=== PATIENT | male | born 1985 | race Caucasian/White ===

== ENCOUNTER 2023-09-09 16:17 | Observation (INO) ==
[2023-09-09 16:55] LABS: Hemoglobin 10.4 g/dl (14.0-18.0); Mean Corpuscular Hemoglobin 31.9 pg (25.0-34.0); Mean Corpuscular Hgb Conc 32.5 g/dL (32.0-36.0); Mean Corpuscular Volume 98.2 fL (80.0-100.0); Platelet Count 152 K/uL (130-400); RDW Coefficient of Variation 15.6 % (11.5-14.5); RDW Standard Deviation 56.4 fL (36.4-46.3); Red Blood Count 3.26 M/uL (4.70-6.10)
[2023-09-09] MEDS ORDERED: SODIUM CHLORIDE 0.9% 1,000 ML IV ONE (16:56)
[2023-09-09] MEDS ORDERED: ACETAMINOPHEN 500 MG TAB PO STA (17:04)
--- NOTE | 2023-09-09 17:04 | Emergency Department Note ---
Impression & Plan Fever ADMIT ED Provider Note HPI: History obtained from patient The patient is a 38-year-old gentleman with history of metastatic colon cancer, currently on chemotherapy, presents emergency department the chief complaint of fever. Patient states over the past 3 days he has had a slight cough, today he developed a fever and when he checked his temperature it was elevated to 102 Fahrenheit. Patient states he contacted his hematology/oncology providers in the [place] area where he lives and he was advised to come to the emergency department to be assessed. On arrival here to the ED the patient is mildly tachycardic at 107, he is febrile on arrival at 38.4, blood pressure stable at 123/102. ROS: - Per HPI Differential Diagnosis: Viral upper respiratory infection, influenza A infection, COVID-19 infection, pneumonia, urinary tract infection, sepsis, amongst other potential pathologies. *Outpatient medications and allergy history reviewed. PE: General: Alert HEENT: Normocephalic, trachea midline Eyes: Extraocular eye movement is intact, no scleral erythema Pulmonary: Clear to auscultation bilaterally, no wheezing Cardio: Tachycardic rate and regular rhythm GI: Abdomen is soft to palpation : No suprapubic tenderness MSK: No evidence of trauma or malformation of the extremities, no edema Skin: No evidence of rash Neuro: Alert, no focal deficits Psychiatric: Cooperative INDEPENDENT INTERPRETATIONS: patient monitor: (As interpreted by myself): - An order was placed for continuous cardiac monitoring - Patient was noted to be in sinus rhythm with a rate of 92 Chest x-ray: (As interpreted by myself): No acute disease Interventions provided in ED: -IV fluid bolus, IV vancomycin, IV Zosyn Medical Decision Making: Shortly after the patient arrived IV was established and lab work obtained, patient was placed on patient monitor, patient was given IV fluid bolus. Patient was not given Tylenol for fever secondary to history of metastatic colon cancer to the liver. Lab work shows evidence of leukocytosis at 12.4, hemoglobin is stable at 10.4, platelet count is normal. Patient is not neutropenic. CMP shows a mild hyponatremia 135, no evidence of acute kidney injury, mild transaminitis with AST of 48, ALT of 66, alk phos at 860, I suspect this is likely related to metastatic disease. Lipase is slightly elevated at 84, patient does not have any abdominal pain. Procalcitonin is elevated at 1.6. Urinalysis does not show any evidence of infection. Viral panel testing is positive for RSV. Patient's symptoms could possibly be secondary to viral infection with RSV, he was given IV fluid bolus here in the ED but was not given a full 30 cc/kg as lactic acid is noted to be within normal limits and the patient is hemodynamically stable, tachycardia downtrended to within normal limits with IV fluids. Patient's blood pressure has been stable, he does not appear to be actively septic. On reassessment the patient appears more comfortable, given his immunocompromise status as he is currently on chemotherapy, I do think it would be reasonable to initiate broad-spectrum antibiotics, admit the patient to the hospitalist service, and follow-up on blood cultures. I did discuss the patient's presentation with the on-call hospitalist for [facility], Dr. Albert, and she is in agreement to admit the patient for further management. Consultants/Discussions held with other healthcare providers: -Dr. Albert, hospitalist Disposition discussion held by myself with: -Patient and significant other at the bedside Diagnosis: 1. Fever, acute 2. History of metastatic colon cancer, currently on chemotherapy 3. Leukocytosis, acute 4. Elevated procalcitonin 5. RSV positive PCR test Disposition: Admission Davon Bonner DO Emergency Medicine Past Med/Surg History Medical History Hypothyroidism Stage IV carcinoma of colon Surgical History S/P ACL repair right Family History Father Cancer Mother Cancer Grandmother (Maternal) Colorectal cancer Social History Smoking Status: Never smoker Hx Alcohol Use: No Allergies Allergies Allergy/AdvReac Type Severity Reaction Status Date / Time No Known Allergies Allergy Verified 09/09/23 18:05 Home Meds Home Medications Medication Instructions Recorded Confirmed 5-Fu Chemo Drug 1 dose IV .Q2WKS 09/09/23 09/09/23 Chemo Medications 1 dose IV DIRECTED 09/09/23 09/09/23 Folinic Acid 1 dose .Q2WK 09/09/23 09/09/23 bevacizumab 25 mg/mL intravenous 0 mg DIRECTED 09/09/23 09/09/23 solution (Avastin) diphenoxylate-atropine 2.5 1 tab PO DIRECTED PRN Diarrhea 09/09/23 09/09/23 mg-0.025 mg tablet (Lomotil) food supplemt, lactose-reduced 1 ea PO DIRECTED PRN NEEDED 09/09/23 09/09/23 heparin lock flush (porcine) 10 10 unit IV DIRECTED 09/09/23 09/09/23 unit/mL intravenous solution levothyroxine 112 mcg tablet 112 mcg PO DAILY 09/09/23 09/09/23 omeprazole 20 mg tablet,delayed 20 mg PO DAILY 09/09/23 09/09/23 release prochlorperazine maleate 10 mg 10 mg PO Q8H PRN NAUSEA/VOMITING 09/09/23 09/09/23 tablet sodium chloride 0.9 % (flush) 10 ml IV DIRECTED 09/09/23 09/09/23 valacyclovir 500 mg tablet 1,000 mg PO DIRECTED PRN Cold 09/09/23 09/09/23 Sores Results & Data (ED) Vital Signs Vital Signs - 24 hr 09/09/23 16:22 09/09/23 16:59 09/09/23 17:03 Temperature 37.2 C 38.4 C H Temperature Source Oral Oral Pulse Rate 111 H Pulse Rate [Finger] 107 H Respiratory Rate 18 18 Respiratory Effort / Characteristics Non-Labored Spontaneous Respiratory Depth Normal Respiratory Pattern Regular Blood Pressure 132/86 Blood Pressure [Right Arm] 123/102 H Blood Pressure Mean 101 Blood Pressure Mean [Right Arm] 109 Blood Pressure Position [Right Arm] Lying Pulse Oximetry 97 96 Oxygen Delivery Method Room Air Room Air Sepsis Recent Fever Within 48 Hours No Sepsis New/Unexplained Change in Mental Status No Sepsis Action Taken by Nursing No Action Required 09/09/23 17:11 Temperature Temperature Source Pulse Rate 104 H Pulse Rate [Finger] Respiratory Rate Respiratory Effort / Characteristics Respiratory Depth Respiratory Pattern Blood Pressure Blood Pressure [Right Arm] Blood Pressure Mean Blood Pressure Mean [Right Arm] Blood Pressure Position [Right Arm] Pulse Oximetry Oxygen Delivery Method Sepsis Recent Fever Within 48 Hours Sepsis New/Unexplained Change in Mental Status Sepsis Action Taken by Nursing Laboratory Data 09/09/23 16:37 09/09/23 16:37 Lab Results 09/09/23 09/09/23 09/09/23 Range/Units 16:37 17:00 17:28 WBC 12.40 H (4.8-10.8) K/ul RBC 3.26 L (4.70-6.10) M/uL Hgb 10.4 L (14.0-18.0) g/dl Hct 32.0 L (42.0-52.0) % MCV 98.2 (80.0-100.0) fL MCH 31.9 (25.0-34.0) pg MCHC 32.5 (32.0-36.0) g/dL RDW Std Deviation 56.4 H (36.4-46.3) fL RDW Coeff of Faustino 15.6 H (11.5-14.5) % Plt Count 152 (130-400) K/uL MPV 10.0 (9.4-12.4) fL Immature Gran % (Auto) 0.6 % Neut % (Auto) 79.2 % Lymph % (Auto) 5.7 % [place] % (Auto) 11.5 % Eos % (Auto) 2.2 % Baso % (Auto) 0.8 % Neut # (Auto) 9.83 H (1.40-6.50) K/uL Lymph # (Auto) 0.71 L (1.20-3.40) K/uL [place] # (Auto) 1.42 H (0.11-0.59) K/uL Eos # (Auto) 0.27 (0.00-0.50) K/uL Baso # (Auto) 0.10 (0.00-0.20) K/uL Immature Gran # (Auto) 0.07 (0.01-0.20) K/uL Dohle Bodies 1+ Polychromasia 1+ Stomatocytes 1+ Sodium 135 L (136-145) mmol/L Potassium 3.7 (3.5-5.1) mmol/L Chloride 101 (98-107) mmol/L Carbon Dioxide 27 (21-32) mmol/L Anion Gap 7 (3-11) BUN 10 (6-23) mg/dl Creatinine 0.87 (0.6-1.4) mg/dl Est Cr Clr Drug Dosing 131.2 ml/min Est GFR ( Amer) 125.1 ml/min Est GFR (Non-Af Amer) 108.0 ml/min BUN/Creatinine Ratio 11.5 (10-20) Glucose 104 H (70-99(Fasting)) mg/dl Lactate 1.3 (0.4-2.0) mmol/L Calcium 8.9 (8.6-10.3) mg/dl Total Bilirubin 0.7 (0.2-1.0) mg/dl AST 48 H (13-39) U/L ALT 66 H (7-52) U/L Alkaline Phosphatase 860 H (34-104) U/L Total Protein 7.5 (6.0-8.3) gm/dl Albumin 4.0 (3.4-5.0) gm/dl Globulin 3.5 (2.5-4.0) gm/dl Albumin/Globulin Ratio 1.1 (0.9-2) Lipase 84 H (11-82) U/L Procalcitonin 1.66 H (0-0.5) ng/ml Urine Color Urine Appearance (Clear) Urine pH (4.5-7.5) Ur Specific Frost (1.000-1.030) Urine Protein (Negative) Urine Glucose (UA) (Negative) Urine Ketones (Negative) Urine Blood (Negative) Urine Nitrite (Negative) Urine Bilirubin (Negative) Urine Urobilinogen (Negative) Ur Leukocyte Esterase (Negative) Adenovirus (PCR) Not Detected (NotDetected) B. pertussis DNA (PCR) Not Detected (NotDetected) B.parapertussis DNA PCR Not Detected (NotDetected) C. pneumoniae DNA (PCR) Not Detected (NotDetected) Coronavirus OC43 (PCR) Not Detected (NotDetected) Coronavirus HKU1 (PCR) Not Detected (NotDetected) Coronavirus 229E (PCR) Not Detected (NotDetected) SARS-CoV-2 (PCR) Not Detected (NotDetected) Coronavirus NL63 (PCR) Not Detected (NotDetected) Human Metapneumovir PCR Not Detected (NotDetected) Influenza Type A (PCR) Not Detected (NotDetected) Influenza Type B (PCR) Not Detected (NotDetected) M. pneumoniae (PCR) Not Detected (NotDetected) Parainfluenza 1 (PCR) Not Detected (NotDetected) Parainfluenza 2 (PCR) Not Detected (NotDetected) Parainfluenza 3 (PCR) Not Detected (NotDetected) Parainfluenza 4 (PCR) Not Detected (NotDetected) RSV (PCR) DETECTED A* (NotDetected) Entero/Rhino (PCR) Not Detected (NotDetected) 09/09/23 Range/Units 18:24 WBC (4.8-10.8) K/ul RBC (4.70-6.10) M/uL Hgb (14.0-18.0) g/dl Hct (42.0-52.0) % MCV (80.0-100.0) fL MCH (25.0-34.0) pg MCHC (32.0-36.0) g/dL RDW Std Deviation (36.4-46.3) fL RDW Coeff of Faustino (11.5-14.5) % Plt Count (130-400) K/uL MPV (9.4-12.4) fL Immature Gran % (Auto) % Neut % (Auto) % Lymph % (Auto) % [place] % (Auto) % Eos % (Auto) % Baso % (Auto) % Neut # (Auto) (1.40-6.50) K/uL Lymph # (Auto) (1.20-3.40) K/uL [place] # (Auto) (0.11-0.59) K/uL Eos # (Auto) (0.00-0.50) K/uL Baso # (Auto) (0.00-0.20) K/uL Immature Gran # (Auto) (0.01-0.20) K/uL Dohle Bodies Polychromasia Stomatocytes Sodium (136-145) mmol/L Potassium (3.5-5.1) mmol/L Chloride (98-107) mmol/L Carbon Dioxide (21-32) mmol/L Anion Gap (3-11) BUN (6-23) mg/dl Creatinine (0.6-1.4) mg/dl Est Cr Clr Drug Dosing ml/min Est GFR ( Amer) ml/min Est GFR (Non-Af Amer) ml/min BUN/Creatinine Ratio (10-20) Glucose (70-99(Fasting)) mg/dl Lactate (0.4-2.0) mmol/L Calcium (8.6-10.3) mg/dl Total Bilirubin (0.2-1.0) mg/dl AST (13-39) U/L ALT (7-52) U/L Alkaline Phosphatase (34-104) U/L Total Protein (6.0-8.3) gm/dl Albumin (3.4-5.0) gm/dl Globulin (2.5-4.0) gm/dl Albumin/Globulin Ratio (0.9-2) Lipase (11-82) U/L Procalcitonin (0-0.5) ng/ml Urine Color Yellow Urine Appearance Clear (Clear) Urine pH 6.0 (4.5-7.5) Ur Specific Frost 1.005 (1.000-1.030) Urine Protein Negative (Negative) Urine Glucose (UA) Negative (Negative) Urine Ketones Negative (Negative) Urine Blood Negative (Negative) Urine Nitrite Negative (Negative) Urine Bilirubin Negative (Negative) Urine Urobilinogen Negative (Negative) Ur Leukocyte Esterase Negative (Negative) Adenovirus (PCR) (NotDetected) B. pertussis DNA (PCR) (NotDetected) B.parapertussis DNA PCR (NotDetected) C. pneumoniae DNA (PCR) (NotDetected) Coronavirus OC43 (PCR) (NotDetected) Coronavirus HKU1 (PCR) (NotDetected) Coronavirus 229E (PCR) (NotDetected) SARS-CoV-2 (PCR) (NotDetected) Coronavirus NL63 (PCR) (NotDetected) Human Metapneumovir PCR (NotDetected) Influenza Type A (PCR) (NotDetected) Influenza Type B (PCR) (NotDetected) M. pneumoniae (PCR) (NotDetected) Parainfluenza 1 (PCR) (NotDetected) Parainfluenza 2 (PCR) (NotDetected) Parainfluenza 3 (PCR) (NotDetected) Parainfluenza 4 (PCR) (NotDetected) RSV (PCR) (NotDetected) Entero/Rhino (PCR) (NotDetected) Administered Medications Discontinued Medications Acetaminophen (Acetaminophen 500 Mg Tab) 1,000 mg PO NOW STA Stop: 09/09/23 17:05 Last Admin: 09/09/23 17:29 Dose: Not Given Documented By: TREY Diphenhydramine HCl (Diphenhydramine 50 Mg/Ml Vial) 50 mg IV NOW STA Stop: 09/09/23 21:33 Last Admin: 09/09/23 21:47 Dose: 50 mg Documented By: DIANELYS Sodium Chloride (Nss) 1,000 mls @ 999 mls/hr IV .Q1H1M ONE Stop: 09/09/23 17:56 Last Infusion: 09/09/23 18:02 Dose: Infused Documented By: Infusion: 09/09/23 18:01 Dose: 0 mls/hr Documented By: Admin: 09/09/23 17:29 Dose: 999 mls/hr Documented By: TREY Vancomycin HCl 2,000 mg/ (Sodium Chloride) 540 mls @ 200 mls/hr IV NOW ONE Stop: 09/09/23 20:44 Last Admin: 09/09/23 19:02 Dose: 200 mls/hr Documented By: DIANELYS Piperacillin Sod/Tazobactam Sod (Zosyn) 4.5 gm in 100 mls @ 200 mls/hr IV NOW ONE Stop: 09/09/23 18:32 Last Infusion: 09/09/23 19:24 Dose: Infused Documented By: Admin: 09/09/23 18:38 Dose: 200 mls/hr Documented By: JOE Famotidine 20 mg/ Syringe 5 mls @ 2.5 mls/min IV NOW STA Stop: 09/09/23 21:33 Last Admin: 09/09/23 21:47 Dose: 2.5 mls/min Documented By: DIANELYS Imaging Data Radiologist's Impression: Chest X-Ray 09/09/23 16:55 XR chest 1V portable CLINICAL HISTORY: Fever. COMPARISON STUDY: No previous studies for comparison. FINDINGS: A right internal jugular [id number] is in place. Lung volumes are normal. Lungs are clear. There is no pneumothorax or pleural effusion. Cardiac size is normal. Mediastinal contours are normal. There is no evidence for pulmonary edema. IMPRESSION: No acute cardiopulmonary findings. ACT 112: Negative or not required by law. Electronically signed by: Abhinav Moe M.D. 09/09/2023 5:32 PM Discharge Plan Visit Data Chief Complaint: Fever Stated Complaint: FEVER - ON CHEMO ED Provider: Davon Bonner Discharge Problem: Fever Patient Disposition: Admitted As Inpatient Discharge Instructions Interventions: ED Discharge Assessment Last Done: 09/09/23 20:57
[2023-09-09 17:13] LABS: Albumin Globulin Ratio 1.1 (0.9-2); BUN Creatinine Ratio 11.5 (10-20); Bilirubin,Total 0.7 mg/dl (0.2-1.0); Calcium 8.9 mg/dl (8.6-10.3); Creatinine Clr Calc Pharmacy 131.2 ml/min; Est GFR (African American) 125.1 ml/min; Globulin 3.5 gm/dl (2.5-4.0); Potassium 3.7 mmol/L (3.5-5.1); Total Protein 7.5 gm/dl (6.0-8.3)
[2023-09-09 17:28] LABS: Basophils % (auto) 0.8 %; Dohle Bodies 1+; Eosinophils # (auto) 0.27 K/uL (0.00-0.50); Eosinophils % (auto) 2.2 %; Immature Granulocytes # (auto) 0.07 K/uL (0.01-0.20); Immature Granulocytes % (auto) 0.6 %; Lymphocytes # (auto) 0.71 K/uL (1.20-3.40); Lymphocytes % (auto) 5.7 %; Monocytes # (auto) 1.42 K/uL (0.11-0.59); Monocytes % (auto) 11.5 %; Neutrophils # (auto) 9.83 K/uL (1.40-6.50); Neutrophils % (auto) 79.2 %; Polychromasia 1+; Stomatocytes 1+
--- NOTE | 2023-09-09 17:33 | XRay Report ---
XR chest 1V portable CLINICAL HISTORY: Fever. COMPARISON STUDY: No previous studies for comparison. FINDINGS: A right internal jugular [id number] is in place. Lung volumes are normal. Lungs are wilbur r. There is no pneumothorax or pleural effusion. Cardiac size is normal. Mediastinal contours are nor mal. There is no evidence for pulmonary edema. IMPRESSION: No acute cardiopulmonary findings. ACT 112: Negative or not required by law. Electronically signed by: Abhinav Moe M.D. 09/09/2023 5:32 PM
[2023-09-09 17:58] LABS: Adenovirus PCR Not Detected (NotDetected); Bordetella parapertussis PCR Not Detected (NotDetected); Bordetella pertussis PCR Not Detected (NotDetected); Chlamydia pneumoniae PCR Not Detected (NotDetected); Coronavirus 229E PCR Not Detected (NotDetected); Coronavirus CoV-2 (COVID19)PCR Not Detected (NotDetected); Coronavirus HKU1 PCR Not Detected (NotDetected); Coronavirus NL63 PCR Not Detected (NotDetected); Coronavirus OC43PCR Not Detected (NotDetected); Human Metapneumovirus PCR Not Detected (NotDetected); Influenza A PCR Not Detected (NotDetected); Influenza B PCR Not Detected (NotDetected); Mycoplasma pneumoniae PCR Not Detected (NotDetected); Parainfluenza Virus 1 PCR Not Detected (NotDetected); Parainfluenza Virus 2 PCR Not Detected (NotDetected); Parainfluenza Virus 3 PCR Not Detected (NotDetected); Parainfluenza Virus 4 PCR Not Detected (NotDetected); Rhinovirus/Enterovirus PCR Not Detected (NotDetected)
[2023-09-09 18:02] LABS: Respiratory Syncytial VirusPCR DETECTED (NotDetected)
[2023-09-09] MEDS ORDERED: VANCOMYCIN HCL 2,000 MG in SODIUM CHLORIDE 0.9% 500 ML IV ONE (18:03)
[2023-09-09] MEDS ORDERED: PIPERACILLIN/TAZOBACTAM 4.5 GM/100 ML BAG IV ONE (18:03)
[2023-09-09] MEDS ORDERED: VANCOMYCIN CONSULT ACTIVE PRN (18:03)
--- NOTE | 2023-09-09 18:18 | History & Physical Report ---
Date of Service September 09, 2023 Assessment & Plan (1) Sepsis: Plan: This is a 38 y/o male with stage IV colon cancer, on chemo therapy, presents to the ED today with new onset of fever today. He is currently undergoing chemotherapy with last treatment 09/01-09/03. He has had URI symptoms for the last 2-3 days but today developed a fever so presented to the ED for evaluation. In the ED, he was noted to be tachycardic, febrile, with leukocytosis and testing positive for RSV. Procalcitonin was elevated but lactate was normal. He does meet for sepsis criteria. Blood and urine cultures pending. - Admit to med telemetry - droplet precautions due to RSV - Continue broad spectrum IV antibiotics (Zosyn, Vanco) while cultures pending - Check MRSA swab - Due to new RUQ pains with slight worsening of baseline LFT elevation, check RUQ ultrasound - Labs in the AM - CBC, BMP, LFTs, Mg, Phos, Lipase - Diet as tolerated (2) RSV infection: (3) Immunocompromised state due to drug therapy: (4) Stage IV carcinoma of colon: (5) Hypothyroidism: Plan: Continue levothyroxine Plan Pt seen and reviewed with collaborating physician, Dr. Albert. Plan of care discussed and as outlined above Code Status: Full code DVT Prophylaxis: Addi Dougherty PA-C History of Present Illness Chief Complaint: Fever x 1 day Primary Care Provider: BRIGHT PERDOMO This is a 38 y/o male with stage IV colon cancer, on chemo therapy, presents to the ED today with new onset of fever today. He notes cold symptoms with associated cough for the last two days. This morning woke up feeling crummy so checked temp, which was normal. This afternoon around 2 pm, check temp again and it was 100.3 --> 100.7 --> 101.7F so came to the ED for evaluation per protocol from oncology. Hist last chemo infusion was 09/01- 09/03, which was cycle 9 of current regimen. He is scheduled for a repeat CT scan on 09/13 to assess response to current treatment regimen. Has noted some diarrhea to loose stools after last round of chemo but this seems to be improving. He also notes new intermittent sharp RUQ pains the last few days but these only last less than 5 minutes. He has not been able to identify any specific triggers. No N/V. Ongoing generalized abdominal pain related to cancer, known ascites on prior imaging. The colon cancer is stage IV with known mets to liver with >50 lesions and to the spine. He reports that have been told that it is "standard colon cancer with neuroendocrine features." He reports a strong family history of both cancer and colon cancer. Allergies Allergy/AdvReac Type Severity Reaction Status Date / Time No Known Allergies Allergy Verified 09/09/23 18:05 Home Medications Medication Instructions Recorded Confirmed Type 5-Fu Chemo Drug 1 dose IV .Q2WKS 09/09/23 09/09/23 History Chemo Medications 1 dose IV DIRECTED 09/09/23 09/09/23 History Folinic Acid 1 dose .Q2WK 09/09/23 09/09/23 History bevacizumab 25 mg/mL intravenous 0 mg DIRECTED 09/09/23 09/09/23 History solution (Avastin) diphenoxylate-atropine 2.5 1 tab PO DIRECTED PRN Diarrhea 09/09/23 09/09/23 History mg-0.025 mg tablet (Lomotil) food supplemt, lactose-reduced 1 ea PO DIRECTED PRN NEEDED 09/09/23 09/09/23 History heparin lock flush (porcine) 10 10 unit IV DIRECTED 09/09/23 09/09/23 History unit/mL intravenous solution levothyroxine 112 mcg tablet 112 mcg PO DAILY 09/09/23 09/09/23 History omeprazole 20 mg tablet,delayed 20 mg PO DAILY 09/09/23 09/09/23 History release prochlorperazine maleate 10 mg 10 mg PO Q8H PRN NAUSEA/VOMITING 09/09/23 09/09/23 History tablet sodium chloride 0.9 % (flush) 10 ml IV DIRECTED 09/09/23 09/09/23 History valacyclovir 500 mg tablet 1,000 mg PO DIRECTED PRN Cold 09/09/23 09/09/23 History Sores Past Med/Surg History Medical History Hypothyroidism Stage IV carcinoma of colon Surgical History S/P ACL repair right Family History Father Cancer Mother Cancer Grandmother (Maternal) Colorectal cancer Social History Smoking Status: Never smoker Hx Alcohol Use: No Review of Systems Review of Systems: All systems reviewed & are unremarkable except as noted in HPI & below Constitutional: + fever and + chills Ear, Nose, Mouth, Throat: + nasal congestion and + nasal discharge Respiratory: + cough; no dyspnea Cardiovascular: no chest pain and no palpitations Gastrointestinal: as per Subjective / HPI Genitourinary: no dysuria or no hematuria Integumentary: no yellowing of the skin Neurologic: no seizure-like activity and no confusion Physical Exam Physical Exam: Please see physician addendum for details of the physical exam. Results & Data Results & Data Vital Signs (Past 12 Hours) Vital Signs Temp Pulse Pulse Resp BP BP Pulse Ox 09/09/23 17:11 104 H 09/09/23 17:03 38.4 C H 09/09/23 16:59 107 H 18 123/102 H 96 09/09/23 16:22 37.2 C 111 H 18 132/86 97 O2 Del Method 09/09/23 17:11 09/09/23 17:03 09/09/23 16:59 Room Air 09/09/23 16:22 Room Air Laboratory Results Laboratory Results - last 24 hr 09/09/23 09/09/23 09/09/23 16:37 17:00 17:28 WBC 12.40 H RBC 3.26 L Hgb 10.4 L Hct 32.0 L MCV 98.2 MCH 31.9 MCHC 32.5 RDW Std Deviation 56.4 H RDW Coeff of Faustino 15.6 H Plt Count 152 MPV 10.0 Immature Gran % (Auto) 0.6 Neut % (Auto) 79.2 Lymph % (Auto) 5.7 Dale % (Auto) 11.5 Eos % (Auto) 2.2 Baso % (Auto) 0.8 Neut # (Auto) 9.83 H Lymph # (Auto) 0.71 L Dale # (Auto) 1.42 H Eos # (Auto) 0.27 Baso # (Auto) 0.10 Immature Gran # (Auto) 0.07 Dohle Bodies 1+ Polychromasia 1+ Stomatocytes 1+ Sodium 135 L Potassium 3.7 Chloride 101 Carbon Dioxide 27 Anion Gap 7 BUN 10 Creatinine 0.87 Est Cr Clr Drug Dosing 131.2 Est GFR ( Amer) 125.1 Est GFR (Non-Af Amer) 108.0 BUN/Creatinine Ratio 11.5 Glucose 104 H Lactate 1.3 Calcium 8.9 Total Bilirubin 0.7 AST 48 H ALT 66 H Alkaline Phosphatase 860 H Total Protein 7.5 Albumin 4.0 Globulin 3.5 Albumin/Globulin Ratio 1.1 Lipase 84 H Procalcitonin 1.66 H Adenovirus (PCR) Not Detected B. pertussis DNA (PCR) Not Detected B.parapertussis DNA PCR Not Detected C. pneumoniae DNA (PCR) Not Detected Coronavirus OC43 (PCR) Not Detected Coronavirus HKU1 (PCR) Not Detected Coronavirus 229E (PCR) Not Detected SARS-CoV-2 (PCR) Not Detected Coronavirus NL63 (PCR) Not Detected Human Metapneumovir PCR Not Detected Influenza Type A (PCR) Not Detected Influenza Type B (PCR) Not Detected M. pneumoniae (PCR) Not Detected Parainfluenza 1 (PCR) Not Detected Parainfluenza 2 (PCR) Not Detected Parainfluenza 3 (PCR) Not Detected Parainfluenza 4 (PCR) Not Detected RSV (PCR) DETECTED A* Entero/Rhino (PCR) Not Detected Diagnostic Findings Chest X-Ray 09/09/23 16:55 XR chest 1V portable CLINICAL HISTORY: Fever. COMPARISON STUDY: No previous studies for comparison. FINDINGS: A right internal jugular [id number]-[id number] is in place. Lung volumes are normal. Lungs are clear. There is no pneumothorax or pleural effusion. Cardiac size is normal. Mediastinal contours are normal. There is no evidence for pulmonary edema. IMPRESSION: No acute cardiopulmonary findings. ACT 112: Negative or not required by law. Electronically signed by: Abhinav Moe M.D. 09/09/2023 5:32 PM Medications Administered Discontinued Medications Acetaminophen (Acetaminophen 500 Mg Tab) 1,000 mg PO NOW STA Stop: 09/09/23 17:05 Last Admin: 09/09/23 17:29 Dose: Not Given Documented By: TREY Sodium Chloride (Nss) 1,000 mls @ 999 mls/hr IV .Q1H1M ONE Stop: 09/09/23 17:56 Last Infusion: 09/09/23 18:02 Dose: Infused Documented By: Infusion: 09/09/23 18:01 Dose: 0 mls/hr Documented By: Admin: 09/09/23 17:29 Dose: 999 mls/hr Documented By: TREY Supervising Physician Co-Signing Physician Notes I have seen and discussed the case with the collaborating JESSICA. I agree with the above H&P. I have reviewed and confirmed the patients medical history, the findings on physical examination, and the patients diagnosis and treatment plan with Ladonna LOPEZ and agree with the information documented. In short, Mr. Barillas is a 38 year old gentleman with hypothyroidism and recently diagnosed (02/2023) stage V colon cancer with mets to liver and spine who is being admitted for evaluation and management of sepsis with RSV in setting of immunocompromised state (chemotherapy infusion last treatment 09/03). Patient states he noted fevers at home and denies really experiencing any other symptoms. He experienced multiple fevers over 100.4, with one at 102 prompting call to his physician who encouraged a visit to the ED. His oncologist is out of [facility]. Patient reports intermittent RUQ pain and stabbing, occasionally triggered by coughing, but not able to correlate symptoms to eating. Swab revealed RSV. UA negative. Procal 1.66. Transaminitis--slightly elevated compared to recent baseline on OSH portal. Physical exam was notable for a pleasant and generally well appearing gentleman. HEENT MMM, PERRLA CV Tachycardic, no MRG RESP CTABL, no resp distress, on room air, ABD soft NTND MSK strength 5/5 Neuro no focal neuro deficits. Plan #Sepsis #RSV infection #Immunocompromised, ongoing chemotherapy -No neutropenia noted; UA negative, Blood cultures pending -Continue broad coverage while blood cultures pend -S/p 1 L IVF in ED -MRSA swab #Transaminitis -Chronic, however new, intermittent pain iso know metastatic disease, no active pain on exam -Trend CMP, plan for liver US in am -If uptrending can consider repeat imaging with plan to obtain records/OSH imaging to coorelate Rest of plan as above (1) Sepsis Sepsis acute organ dysfunction status: without acute organ dysfunction Sepsis type: sepsis due to unspecified organism Qualified Code(s): A41.9 - Sepsis, unspecified organism (5) Hypothyroidism Hypothyroidism type: unspecified Qualified Code(s): E03.9 - Hypothyroidism, unspecified
[2023-09-09 18:34] LABS: Appearance Urine Clear (Clear); Bilirubin Urine Negative (Negative); Blood Urine Negative (Negative); Color Urine Yellow; Glucose Urine UA Negative (Negative); Ketones Urine Negative (Negative); Leukocyte Esterase Urine Negative (Negative); Nitrite Urine Negative (Negative); Protein Urine Negative (Negative); Specific Gravity Urine 1.005 (1.000-1.030); Urobilinogen Urine Negative (Negative)
[2023-09-09] MEDS ORDERED: ACETAMINOPHEN 325 MG TAB PO PRN (20:57)
[2023-09-09] MEDS ORDERED: ONDANSETRON INJ 2 MG/ML 2 ML VIAL IV PRN (20:57)
[2023-09-09] MEDS ORDERED: diphenhydrAMINE 50 MG/ML VIAL IV STA (21:32)
[2023-09-09] MEDS ORDERED: FAMOTIDINE 20 MG in SYRINGE 3 ML IV STA (21:32)
--- NOTE | 2023-09-09 21:38 | Pharmacy Report ---
Pharmacy PK ABX Note - Date of Service September 09, 2023 - Assessment and Plan Assessment 38 year old M receiving IV Vancomycin and Zosyn for treatment of empiric sepsis. Day # 1 of antimicrobial therapy. Plan Vancomycin * Loading dose: 2000 mg (~20mg/kg) IV x 1 * Maintenance dose: 1500 mg IV every 12 hours * Regimen is predicted to achieve target AUC/MIMA of 400-600 mg/L.hr * No trough ordered at this time given empiric indication. If therapy is cont inued >48 hours, will order trough at that time to reassess therapy. Pharmacy will continue to follow and will adjust dose/frequency as necessary. Thank you. Pharmacy has transitioned to AUC monitoring for vancomycin. AUC/MIMA is the preferred PK/PD target and is associated with decreased risk of nephrotoxicity compared to traditional trough targets.
[2023-09-10] MEDS: PIPERACILLIN/TAZOBACTAM 4.5 GM in DEXTROSE 5% MINI-B 100 ML IV SCH ×3 (00:33→16:18)
[2023-09-10] MEDS: LEVOTHYROXINE SODIUM 112 MCG TABLET PO SCH (04:52)
[2023-09-10 05:13] LABS: Hemoglobin 9.4 g/dl (14.0-18.0); Mean Corpuscular Hemoglobin 31.8 pg (25.0-34.0); Mean Corpuscular Hgb Conc 32.4 g/dL (32.0-36.0); Mean Platelet Volume 10.4 fL (9.4-12.4); Platelet Count 126 K/uL (130-400); RDW Coefficient of Variation 15.8 % (11.5-14.5); RDW Standard Deviation 56.3 fL (36.4-46.3); Red Blood Count 2.96 M/uL (4.70-6.10); White Blood Count 8.98 K/ul (4.8-10.8)
[2023-09-10 05:20] LABS: Albumin Level 3.5 gm/dl (3.4-5.0); BUN Creatinine Ratio 12.2 (10-20); Bilirubin Direct 0.3 mg/dl (0-0.2); Bilirubin,Total 0.9 mg/dl (0.2-1.0); Calcium 8.6 mg/dl (8.6-10.3); Creatinine Clr Calc Pharmacy 139.2 ml/min; Est GFR (African American) 128.2 ml/min; Est GFR (Non-African American) 110.6 ml/min; Magnesium 1.7 mg/dl (1.7-2.4); Phosphorus 3.1 mg/dl (2.5-4.9); Potassium 3.8 mmol/L (3.5-5.1); Total Protein 6.5 gm/dl (6.0-8.3)
[2023-09-10 05:41] LABS: Basophils # (auto) 0.05 K/uL (0.00-0.20); Basophils % (auto) 0.6 %; Eosinophils % (auto) 1.1 %; Immature Granulocytes # (auto) 0.06 K/uL (0.01-0.20); Immature Granulocytes % (auto) 0.7 %; Lymphocytes # (auto) 0.74 K/uL (1.20-3.40); Lymphocytes % (auto) 8.2 %; Monocytes # (auto) 1.57 K/uL (0.11-0.59); Monocytes % (auto) 17.5 %; Neutrophils # (auto) 6.46 K/uL (1.40-6.50); Neutrophils % (auto) 71.9 %; RBC Morphology Unremarkable
[2023-09-10] MEDS ORDERED: VANCOMYCIN HCL 1,500 MG in SODIUM CHLORIDE 0.9% 500 ML IV SCH (06:00)
[2023-09-10] MEDS: DOXYCYCLINE HYCLATE 100 MG in DEXTROSE 5% MINI-B 100 ML IV SCH ×2 (07:21→20:42)
[2023-09-10] MEDS: ENOXAPARIN INJ 40 MG/0.4 ML SYR SQ SCH (07:21)
[2023-09-10] MEDS: PANTOprazole 40 MG TAB PO SCH (07:22)
--- NOTE | 2023-09-10 07:54 | Ultrasound Report ---
ABDOMINAL ULTRASOUND, RIGHT UPPER QUADRANT HISTORY: elevated LFTs, met colon cancer. COMPARISON: None. FINDINGS: Pancreas: The pancreas demonstrates a normal echotexture. Liver: Multiple hypoechoic lesions seen throughout the liver. This suggests metastatic disease. Gallbladder: The gallbladder is contracted. The gallbladder is diffusely thickened measuring 4 mm. Ne gative sonographic Pedersen sign. There is trace fluid located between the gallbladder and liver. No ga llstones identified. CBD: 3 mm. Right kidney: No hydronephrosis. IMPRESSION: 1. Multiple hypoechoic lesion seen throughout the liver suggestive of metastatic disease. 2. The gallbladder is contracted. This may account for the diffuse gallbladder wall thickening. No ga llstones. Negative sonographic Pedersen sign. 3. Trace fluid located between the liver and gallbladder. ACT 112: Negative or not required by law. Electronically signed by: John Lozoya M.D. 09/10/2023 7:53 AM
[2023-09-10] MEDS ORDERED: LORATADINE 10 MG TAB PO ONE (11:50)
--- NOTE | 2023-09-10 11:55 | Hospitalist Progress Note ---
Date of Service September 10, 2023 Assessment & Plan (1) Sepsis: Plan: 38 y/o male with stage IV colon cancer, on chemo therapy, presents to the ED today with new onset of fever today. He is currently undergoing chemotherapy with last treatment 09/01-09/03. He has had URI symptoms 2-3 days prior to presentation and fever on day of presentation In the ED, he was noted to be tachycardic, febrile, with leukocytosis and testing positive for RSV. Procalcitonin was elevated at 1.66 but lactate was normal. Met criteria for sepsis XR chest did not show any acute abnormalities per my review Was initially on Vanc and zosyn MRSA screen was negative Patient had Red man reaction to Vancomycin last night and antibiotics was changed to Doxycycline and zosyn Will continue this for now. Blood cultures still in lab (2) RSV infection: Plan: Continue supportive care On room air Tab loratadine started Guaifenesin 600mg q12h Tessalon perrles prn cough (3) Immunocompromised state due to drug therapy: (4) Stage IV carcinoma of colon: Plan: Patient to continue treatment with his Oncologist outpatient LFTs elevated Liver USS noted multiple hypoechoic lesion in liver, no gallstones, negative wagner sign Liver mets are known per history and likely explains the elevated LFT (5) Hypothyroidism: Plan: Continue levothyroxine Plan Code Status: Full code DVT Prophylaxis: Addi Hensley spent a total of 50 minutes coordinating, documenting and providing care for this patient excluding time spent in performance of separately billed services Admission and Anticipated Discharge Date Admission Date: September 09, 2023 Subjective Patient seen and examined Reports feeling better today Reports cough Denied any shortness of breath. Reports occasional chest pain with coughing Reports some congestion Denied nausea,vomiting. Reports appetite is improved today Denied chills Report chronic dull pain from his cancer. Denied diarrhea Denied dysuria, freq, urgency, hematuria Physical Exam Constitutional: + well hydrated; no acute distress Eyes: PERRL, conjunctivae normal, anicteric sclerae ENMT: external ear and nose normal, oropharynx normal Respiratory: normal respiratory effort, lungs clear to auscultation Cardiovascular: Rate/Rhythm: regular rate and regular rhythm S1 S2 Gastrointestinal (Abdomen): normal bowel sounds, soft, nontender, no hepatosplenomegaly Musculoskeletal: no cyanosis or clubbing, extremities motor strength 5/5 Neurologic: PERRL, EOMI, accommodation nl, no face palsy, no dysarthria Psychiatric: A+Ox3, euthymic affect Results & Data Results & Data Vital Signs (Past 12 Hours) Vital Signs Temp Pulse Pulse Resp BP Pulse Ox O2 Del Method 09/10/23 09:32 76 09/10/23 03:22 37.9 C H 88 15 125/80 95 Room Air Laboratory Results Abnormal lab results 09/09/23 09/09/23 09/10/23 Range/Units 16:37 17:00 04:50 WBC 12.40 H (4.8-10.8) K/ul RBC 3.26 L 2.96 L (4.70-6.10) M/uL Hgb 10.4 L 9.4 L (14.0-18.0) g/dl Hct 32.0 L 29.0 L (42.0-52.0) % RDW Std Deviation 56.4 H 56.3 H (36.4-46.3) fL RDW Coeff of Faustino 15.6 H 15.8 H (11.5-14.5) % Plt Count 126 L (130-400) K/uL Neut # (Auto) 9.83 H (1.40-6.50) K/uL Lymph # (Auto) 0.71 L 0.74 L (1.20-3.40) K/uL [place] # (Auto) 1.42 H 1.57 H (0.11-0.59) K/uL Sodium 135 L (136-145) mmol/L Glucose 104 H 100 H (70-99(Fasting)) mg/dl Direct Bilirubin 0.3 H (0-0.2) mg/dl AST 48 H 40 H (13-39) U/L ALT 66 H 54 H (7-52) U/L Alkaline Phosphatase 860 H 715 H (34-104) U/L Lipase 84 H (11-82) U/L Procalcitonin 1.66 H (0-0.5) ng/ml RSV (PCR) DETECTED A* (NotDetected) (1) Sepsis Sepsis type: sepsis due to unspecified organism Sepsis acute organ dysfunction status: without acute organ dysfunction Qualified Code(s): A41.9 - Sepsis, unspecified organism (5) Hypothyroidism Hypothyroidism type: unspecified Qualified Code(s): E03.9 - Hypothyroidism, unspecified
[2023-09-10] MEDS ORDERED: BENZONATATE 100 MG CAPSULE PO STA (11:59)
[2023-09-10] MEDS: guaiFENesin 600 MG TABCR PO SCH (20:42)
[2023-09-11] MEDS: PIPERACILLIN/TAZOBACTAM 4.5 GM in DEXTROSE 5% MINI-B 100 ML IV SCH ×2 (00:04→09:44)
[2023-09-11] MEDS: LEVOTHYROXINE SODIUM 112 MCG TABLET PO SCH (05:43)
[2023-09-11 07:38] LABS: Albumin Level 3.7 gm/dl (3.4-5.0); BUN Creatinine Ratio 14.7 (10-20); Bilirubin,Total 0.8 mg/dl (0.2-1.0); Calcium 9.4 mg/dl (8.6-10.3); Creatinine Clr Calc Pharmacy 111.9 ml/min; Est GFR (African American) 106.1 ml/min; Est GFR (Non-African American) 91.5 ml/min; Globulin 3.6 gm/dl (2.5-4.0); Total Protein 7.3 gm/dl (6.0-8.3)
[2023-09-11] MEDS: DOXYCYCLINE HYCLATE 100 MG in DEXTROSE 5% MINI-B 100 ML IV SCH (07:47)
[2023-09-11] MEDS: PANTOprazole 40 MG TAB PO SCH (07:52)
[2023-09-11] MEDS: guaiFENesin 600 MG TABCR PO SCH (07:53)
[2023-09-11] MEDS: ENOXAPARIN INJ 40 MG/0.4 ML SYR SQ SCH (07:53)
[2023-09-11 08:05] LABS: Hematocrit (blood only) 32.8 % (42.0-52.0); Hemoglobin 10.7 g/dl (14.0-18.0); Mean Corpuscular Hemoglobin 31.5 pg (25.0-34.0); Mean Corpuscular Hgb Conc 32.6 g/dL (32.0-36.0); Mean Corpuscular Volume 96.5 fL (80.0-100.0); Mean Platelet Volume 10.6 fL (9.4-12.4); Platelet Count 152 K/uL (130-400); RDW Coefficient of Variation 15.7 % (11.5-14.5); RDW Standard Deviation 55.3 fL (36.4-46.3); White Blood Count 8.55 K/ul (4.8-10.8)
[2023-09-11] MEDS ORDERED: LORATADINE 10 MG TAB PO SCH (09:00)
[2023-09-11] MEDS ORDERED: cefTRIAXone SODIUM 2,000 MG in DEXTROSE 5 % MINI-B 50 ML IV SCH (12:00)
[2023-09-11] MEDS ORDERED: DOXYCYCLINE HOME PACK 100 MG PO ONE (12:33)
--- NOTE | 2023-09-11 12:37 | Discharge Summary ---
Date of Service September 11, 2023 Admission HPI Per Admitting Provider This is a 38 y/o male with stage IV colon cancer, on chemo therapy, presents to the ED today with new onset of fever today. He notes cold symptoms with associated cough for the last two days. This morning woke up feeling crummy so checked temp, which was normal. This afternoon around 2 pm, check temp again and it was 100.3 --> 100.7 --> 101.7F so came to the ED for evaluation per protocol from oncology. Hist last chemo infusion was 09/01- 09/03, which was cycle 9 of current regimen. He is scheduled for a repeat CT scan on 09/13 to assess response to current treatment regimen. Has noted some diarrhea to loose stools after last round of chemo but this seems to be improving. He also notes new intermittent sharp RUQ pains the last few days but these only last less than 5 minutes. He has not been able to identify any specific triggers. No N/V. Ongoing generalized abdominal pain related to cancer, known ascites on prior imaging. The colon cancer is stage IV with known mets to liver with >50 lesions and to the spine. He reports that have been told that it is "standard colon cancer with neuroendocrine features." He reports a strong family history of both cancer and colon cancer. Admission Exam Per Admitting Provider Physical exam was notable for a pleasant and generally well appearing gentleman. HEENT MMM, PERRLA CV Tachycardic, no MRG RESP CTABL, no resp distress, on room air, ABD soft NTND MSK strength 5/5 Neuro no focal neuro deficits. Principal Diagnosis RSV infection Possible sepsis Discharge Exam Constitutional + well hydrated; no acute distress Eyes PERRL, conjunctivae normal, anicteric sclerae ENMT external ear and nose normal, oropharynx normal Respiratory normal respiratory effort, lungs clear to auscultation Cardiovascular Rate/Rhythm: regular rate and regular rhythm S1 S2 Gastrointestinal (Abdomen) normal bowel sounds, soft, nontender, no hepatosplenomegaly Musculoskeletal no cyanosis or clubbing, extremities motor strength 5/5 Neurologic PERRL, EOMI, accommodation nl, no face palsy, no dysarthria Psychiatric A+Ox3, euthymic affect Discharge Data Allergies Allergy/AdvReac Type Severity Reaction Status Date / Time vancomycin Allergy Redness of Verified 09/10/23 04:18 Skin Ordered Studies 09/10/23 US liver Routine Hospital Course (1) Sepsis: 38 year old man with stage IV colon cancer, on chemo therapy, presents to the ED today with new onset of fever today. He is currently undergoing chemotherapy with last treatment 09/01-09/03. He has had URI symptoms 2-3 days prior to presentation and fever on day of presentation In the ED, he was noted to be tachycardic, febrile, with leukocytosis and testing positive for RSV. Procalcitonin was elevated at 1.66 but lactate was normal. Met criteria for sepsis XR chest did not show any acute abnormalities per my review Was initially started on Vanc and zosyn MRSA screen was negative Patient had Red man reaction to Vancomycin and antibiotics was changed to Doxycycline and zosyn Fever resolved Patient feeling better Antibiotics deescalated to Ceftriaxone and doxycycline Patient feels good and wants to spend at home He stated he will follow up blood culture results as he has signed up for patient portal Blood cultures are negative 24 hrs preliminary report Discharged on cefpodoxime and doxycycline to complete treatment (2) RSV infection: Discharged on po guaifenesin 600mg bid, loratadine 10mg daily (3) Immunocompromised state due to drug therapy: (4) Stage IV carcinoma of colon: Patient to continue treatment with his Oncologist outpatient LFTs elevated Liver USS noted multiple hypoechoic lesion in liver, no gallstones, negative wagner sign Liver mets are known per history and likely explains the elevated LFT (5) Hypothyroidism: Continue levothyroxine Total Time Total Time Spent Total Time Spent (In Minutes): 35 Total Time Includes: Examination of the Patient, Discharge Planning and Medication Reconciliation Discharge Plan Discharge Items Patient Disposition: Home - Self-Care Reason For Visit: FEVER, RSV Discharge Diagnosis: RSV infection Possible sepsis Activity: Resume your previous activity Non-emergency contact: Primary Care Provider Call non-emergency contact if: you have any medication questions and your symptoms worsen Follow-up/Referrals: BRIGHT PERDOMO [Other] Diet: Regular Addtl Attending Provider Instructions: Mr Barillas. You came to the hospital complaining of fever, cough and cold symptoms You were evaluated and found to have RSV infection. You were managed for the above listed diagnoses. You are being discharged on oral antibiotics to complete treatment. Please ensure follow up outstanding results and your Doctors. It was a pleasure taking care of you. Pending Studies at Discharge: Yes (Blood cultures) Stand-Alone Forms: My [facility], Smoking Cessation Medications and DC Order Prescriptions: New doxycycline hyclate 100 mg Capsule 100 mg PO BID Qty: 8 0RF guaifenesin [Mucinex] 600 mg Tablet Extended Release 12hr 600 mg PO Q12 Qty: 8 0RF loratadine [Wal-itin] 10 mg Tablet 10 mg PO QAM Qty: 4 0RF cefpodoxime 200 mg tablet 200 mg PO BID Qty: 8 0RF Rx Instructions: must administer with a meal/food Continued 5-Fu Chemo Drug 1 dose IV .Q2WKS diphenoxylate-atropine [Lomotil] 2.5-0.025 mg Tablet 1 tab PO DIRECTED PRN (Reason: Diarrhea) prochlorperazine maleate 10 mg tablet 10 mg PO Q8H PRN (Reason: NAUSEA/VOMITING) valacyclovir 500 mg tablet 1,000 mg PO DIRECTED PRN (Reason: Cold Sores) levothyroxine 112 mcg Tablet 112 mcg PO DAILY food supplemt, lactose-reduced Liquid 1 ea PO DIRECTED PRN (Reason: NEEDED) omeprazole 20 mg Tablet,Delayed Release (Dr/Ec) 20 mg PO DAILY Folinic Acid 1 dose .Q2WK heparin lock flush (porcine) 10 unit/mL Solution 10 unit IV DIRECTED sodium chloride 0.9 % (flush) Syringe 10 ml IV DIRECTED Avastin 25 mg/mL Solution 0 mg DIRECTED Chemo Medications 1 dose IV DIRECTED Discharge Orders: Discharge Order (Routine); Ordered 09/11/23 Ordered By: Keturah Eli Admission Data Admit Date/Time: 09/09/23 18:34 Attending Provider: Keturah Eli I. Admit Provider: Karrie Albert Primary Care Provider: BRIGHT PERDOMO Other Providers: CORONA STERN; Karrie Albert; Ryan Bloom Other Interventions: Discharge Summary Assessment (RN) Last Done: 09/11/23 12:44
[2023-09-11] MEDS ORDERED: DOXYCYCLINE HYCLATE 100 MG CAP PO SCH (21:00)
== END 2023-09-11 13:14 | disposition home or self-care (01) | DRG 872 ==
LOC: ED 16:17 → EDINP 18:34 → INTOOBSV 18:34 → SUATTDRO 18:34 → 2E 20:57